=== PATIENT | male | born 1980 | race African-American/Black ===

== ENCOUNTER 2021-11-15 13:23 | Emergency (ER) | payer MEDICAID ==
[~2021-11-15] VITALS: Ht 190.5 cm; Wt 106.0 kg
[2021-11-15] MEDS ORDERED: CEPH500T MT (13:49)
[2021-11-15 13:54] VITALS: BP 141/69
== END 2021-11-15 13:54 | disposition home or self-care (01) ==
LOC: ER 13:35
DX: H66.41 Suppurative otitis media, unspecified, right ear (principal)
CPT/HCPCS: 99283

== ENCOUNTER 2023-11-10 15:52 | Inpatient (IN) | payer MEDICAID, OTHER ==
[~2023-11-10] VITALS: Ht 190.5 cm; Wt 99.8 kg
[~2023-11-10 15:52] MED LIST: CEPH500T MT
[2023-11-10] MEDS: KETOROLAC 15MG/ML VIAL IV ONE (16:15)
[2023-11-10] MEDS: ACETAMINOPHEN 325MG TABLET PO STA (16:49)
[2023-11-10] MEDS: SODIUM CHLORIDE 0.9% 1000ML BAG (SEPSIS BOLUS) IV ONE (16:50)
[2023-11-10 17:02] LABS: BASOPHILS % 0.6 % (0.0-2.0); HEMATOCRIT. 48.2 % (42.0-52.0); HEMOGLOBIN. 16.2 g/dL (14.0-18.0); LYMPHOCYTES % 10.3 % (20.0-50.0); MEAN CORPUSCULAR HEMOGLOBIN 30.2 pg (28.0-32.0); MEAN CORPUSCULAR HGB CONC 33.7 g/dL (31.0-37.0); MEAN CORPUSCULAR VOLUME 89.9 fL (80.0-94.0); MEAN PLATELET VOLUME 8.8 fl (7.4-10.4); MONOCYTES % 10.4 % (2.0-8.0); NEUTROPHILS % 78.7 % (40.0-76.0); PLATELET 195 x1000/uL (130-400); RED BLOOD CELL COUNT 5.36 mill/uL (4.7-6.1); RED CELL DISTRIBUTION WIDTH 12.6 % (11.6-14.6); WHITE BLOOD COUNT 11.2 x1000/uL (4.5-11.0)
[2023-11-10 17:08] LABS: INR 1.1; PROTHROMBIN TIME 12.5 sec (9.6-11.0)
[2023-11-10 17:16] LABS: ALANINE AMINOTRANSFERASE 31 IU/L (10-49); ALBUMIN 4.7 g/dL (3.2-4.8); ASPARTATE AMINOTRANSFERASE 41 IU/L (<34); BILIRUBIN TOTAL 0.9 mg/dL (0.1-1.0); CALCIUM 8.8 mg/dL (8.7-10.4); CARBON DIOXIDE 26 mEq/L (21-32); CHLORIDE 95 mEq/L (98-107); CREATININE 1.1 mg/dL (0.6-1.3); GLUCOSE 129 mg/dL (70-105); LACTIC ACID 2.4 mmol/L (0.4-2.0); POTASSIUM 3.6 mEq/L (3.5-5.1); PROTEIN TOTAL 7.2 g/dL (6.0-8.3); SODIUM 131 mEq/L (136-145); TROPONIN I HIGH SENSITIVITY 6 ng/L (3.0-53); UREA NITROGEN BLOOD 15 mg/dL (9-23)
[2023-11-10] MEDS: CEFTRIAXONE 1GM/50ML 50 ML IV ONE (17:29)
[2023-11-10] MEDS: ONDANSETRON HCL 4MG/2ML INJ IV ONE (17:29)
[2023-11-10] MEDS: AZITHROMYCIN 500MG/250ML 250 ML IV ONE (17:29)
[2023-11-10 22:54] LABS: CLARITY URINE CLEAR (CLEAR); COLOR URINE YELLOW (YELLOW); GLUCOSE URINE NEGATIVE (NEGATIVE); KETONES URINE TRACE (NEGATIVE); LEUKOCYTE ESTERASE URINE NEGATIVE (NEGATIVE); NITRITE URINE NEGATIVE (NEGATIVE); OCCULT BLOOD URINE NEGATIVE (NEGATIVE); PROTEIN URINE TRACE (NEGATIVE); SPECIFIC GRAVITY URINE 1.008 (1.005-1.030); UROBILINOGEN URINE 0.2 E.U./dL (0.2-1.0)
[2023-11-10 22:55] VITALS: BP 150/94; PULSE 82; RESP 20; TEMP 97.5
[2023-11-10 23:22] LABS: BACTERIA URINE NONE SEEN; RBC URINE NONE SEEN /hpf (0-2); SQUAMOUS EPITHELIAL CELL URINE NONE SEEN /lpf (RARE/1+); WBC URINE 0-2 /hpf (0-2); YEAST URINE NONE SEEN
[2023-11-11] VITALS: BP 127/80; PULSE 77; RESP 20; TEMP 97.5
[2023-11-11] MEDS ORDERED: HYDROCODONE/ACETAMINOPHEN 5/325MG TABLET PO PRN ×2 (00:15→09:45)
[2023-11-11] MEDS ORDERED: NALOXONE HCL 0.4MG/ML VIAL IV PRN (00:30)
[2023-11-11] MEDS: DEXT 5%/0.45% NACL 1000ML 1,000 ML IV SCH (01:47)
[2023-11-11 04:00] VITALS: BP 127/80; PULSE 77; RESP 20; TEMP 97.5
[2023-11-11 06:31] LABS: HEMATOCRIT 42.4 % (42.0-52.0); HEMOGLOBIN 14.8 g/dL (14.0-18.0); MEAN CORPUSCULAR HGB CONC 34.8 g/dL (31.0-37.0); MEAN CORPUSCULAR VOLUME 88.9 fL (80.0-94.0); PLATELET 169 x1000/uL (130-400); RED BLOOD CELL COUNT 4.77 mill/uL (4.7-6.1); RED CELL DISTRIBUTION WIDTH 12.5 % (11.6-14.6)
[2023-11-11 06:56] LABS: CALCIUM 8.4 mg/dL (8.7-10.4); CARBON DIOXIDE 27 mEq/L (21-32); CHLORIDE 102 mEq/L (98-107); GLUCOSE 153 mg/dL (70-105); POTASSIUM 3.7 mEq/L (3.5-5.1); SODIUM 132 mEq/L (136-145); UREA NITROGEN BLOOD 15 mg/dL (9-23)
[2023-11-11 08:00] VITALS: BP 135/79; PULSE 76; RESP 18; TEMP 98.5
[2023-11-11] MEDS: ENOXAPARIN 40MG/0.4ML SYR SUBCUT SCH (08:42)
[2023-11-11] MEDS: CEFTRIAXONE 1GM/50ML 50 ML IV SCH (08:42)
[2023-11-11] MEDS ORDERED: DOCUSATE SODIUM 100MG CAPSULE PO PRN (09:30)
[2023-11-11] MEDS ORDERED: IPRATROPIUM/ALBUTEROL 0.5-3(2.5)MG/3ML NEB HHN PRN (09:30)
[2023-11-11] MEDS ORDERED: CLONIDINE 0.1MG TABLET PO PRN (09:30)
[2023-11-11] MEDS: PANTOPRAZOLE 40MG DR TABLET PO SCH (10:02)
[2023-11-11] MEDS: AZITHROMYCIN 500MG/250ML 250 ML IV SCH (10:02)
[2023-11-11] MEDS: ACETAMINOPHEN 325MG TABLET PO PRN (10:12)
[2023-11-11 12:00] VITALS: BP 122/80; PULSE 81; RESP 18; TEMP 99.5
[2023-11-11 16:00] VITALS: BP 130/80; PULSE 81; RESP 18; TEMP 98.1
[2023-11-11 18:57] LABS: CREATINE KINASE MB FRACTION 1.2 ng/mL (0.5-3.6)
[2023-11-11] MEDS ORDERED: GADOTERATE MEGLUMINE 5 MMOL/10 ML VIAL IV ONE (19:49)
[2023-11-11 20:46] VITALS: BP 131/80; PULSE 67; RESP 18; TEMP 98.4
[2023-11-12 00:41] LABS: CREATINE KINASE MB FRACTION 0.8 ng/mL (0.5-3.6)
[2023-11-12 00:51] VITALS: BP 134/89; PULSE 74; RESP 20; TEMP 97.5
[2023-11-12 04:00] VITALS: BP 112/68; PULSE 68; RESP 16; TEMP 99.5
[2023-11-12 08:00] VITALS: BP 110/72; PULSE 66; RESP 22; TEMP 98.9
[2023-11-12] MEDS ORDERED: IOHEXOL-350 100 ML BOTTLE ONE (11:53)
[2023-11-12 16:00] VITALS: BP 125/76; PULSE 67; RESP 22; TEMP 97.5
[2023-11-12 20:08] VITALS: BP 111/68; PULSE 72; RESP 18; TEMP 98.3
[2023-11-13] VITALS (7 sets, daily range): BP systolic 113–129; BP diastolic 70–83; PULSE 61–75; RESP 18–20; TEMP 97.2–99.7
[2023-11-13] MEDS ORDERED: IBUP-2030 MT (14:00)
[2023-11-13] MEDS ORDERED: AZIT500T8 PO (14:00)
[2023-11-13 14:57] LABS: BG BASE EXCESS 3.5 mmol/L (-2.0-2.0); BG CARBOXYHEMOGLOBIN 0.6 % (0.5-1.5); BG DEOXYHEMOGLOBIN 4.7 % (0.0-5.0); BG FRACTION INSPIRED OXYGEN 21; BG HCO3 ACT 26.8 mmol/L (22.0-26.0); BG METHEMOGLOBIN 0.1 % (0.0-1.5); BG OXYGEN SATURATION 95.3 % (92.0-98.5); BG OXYHEMOGLOBIN 94.6 % (94.0-97.0); BG PCO2 36.7 mmHg (35.0-45.0); BG PH 7.482 (7.350-7.450); BG PO2 74.4 mmHg (75.0-100.0); BG SAMPLE SITE RIGHT RADIAL; BG TOTAL HEMOGLOBIN 14.9 g/dL (12.0-18.0); BG VENT MODE ROOM AIR
[2023-11-14 04:00] VITALS: BP 115/68; PULSE 61; RESP 19; TEMP 100.9
[2023-11-14] MEDS: AZITHROMYCIN 500 MG TABLET PO SCH (08:14)
[2023-11-14] MEDS: FAMOTIDINE 20MG TABLET PO SCH (08:14)
[2023-11-14] MEDS: CEFTRIAXONE 1,000 MG in DEXTROSE 5% WATER 50 ML IV SCH (08:14)
[2023-11-14 09:43] VITALS: BP 104/59; PULSE 67; RESP 22; TEMP 97
[2023-11-14 09:58] VITALS: BP 104/59; PULSE 67; TEMP 97; O2SAT 98
[2023-11-14] MEDS ORDERED: IOHEXOL-350 100 ML BOTTLE ONE (12:19)
== END 2023-11-14 10:55 | disposition short-term general hospital (02) | DRG 139 ==
LOC: ER 15:52 → EDBEDREQ 20:13 → 7WST 22:54
PROVIDERS: ADMIT Internal Medicine; ATTEND Internal Medicine
DX: J18.9 Pneumonia, unspecified organism (principal); J96.90 Respiratory failure, unspecified, unspecified whether with hypoxia or hypercapnia; E87.1 Hypo-osmolality and hyponatremia; E87.20 Acidosis, unspecified; G93.0 Cerebral cysts; I10 Essential (primary) hypertension; D72.829 Elevated white blood cell count, unspecified; Z20.822 Contact with and (suspected) exposure to COVID-19
CPT/HCPCS: 36415; 36600; 70553; 71045; 71275; 80048; 80053; 81003; 82375; 82550; 82553; 82805; 82962; 83036; 83605; 83880; 84145; 84484; 85025; 85027; 85379; 87426; 87449; 87804; 93005; 99285; A9577; J0456; J0696; J1650; J1885; J2405; J7030; J7060; Q9967

== ENCOUNTER 2025-08-02 12:30 | Emergency (ER) | payer MEDICAID ==
[~2025-08-02] VITALS: Ht 191.8 cm; Wt 102.6 kg
[~2025-08-02 12:30] MED LIST changes: +AZIT500T8 PO; -CEPH500T MT; +IBUP-2030 MT
[2025-08-02 12:44] VITALS: O2SAT 98
[2025-08-02] MEDS: FLUORESCEIN SODIUM 1MG/STRIP LEFTEYE ONE (15:06)
[2025-08-02] MEDS: TETRACAINE 0.5% OPHTH DROPS 4ML BOTHEYE ONE (15:07)
[2025-08-02 15:45] LABS: BASOPHILS % 1.9 % (0.0-2.0); EOSINOPHILS % 1.2 % (0.0-5.0); HEMATOCRIT. 45.2 % (42.0-52.0); HEMOGLOBIN. 15.1 g/dL (14.0-18.0); LYMPHOCYTES % 35.9 % (20.0-50.0); MEAN PLATELET VOLUME 8.3 fl (7.4-10.4); MONOCYTES % 9.2 % (2.0-8.0); NEUTROPHILS % 51.8 % (40.0-76.0); PLATELET 260 x1000/uL (130-400); RED BLOOD CELL COUNT 4.93 mill/uL (4.7-6.1); RED CELL DISTRIBUTION WIDTH 12.6 % (11.6-14.6)
[2025-08-02 16:00] LABS: CREATININE 1.0 mg/dL (0.6-1.3); UREA NITROGEN BLOOD 8 mg/dL (9-23)
[2025-08-02 16:01] LABS: TROPONIN I HIGH SENSITIVITY < 4 ng/L (3.0-53)
[2025-08-02 16:02] LABS: ASPARTATE AMINOTRANSFERASE 25 IU/L (<34); BILIRUBIN DIRECT 0.2 mg/dL (<=3.0); BILIRUBIN TOTAL 0.7 mg/dL (0.1-1.0); PROTEIN TOTAL 6.7 g/dL (6.0-8.3)
[2025-08-02] MEDS ORDERED: OCUFLX LEFTEYE (18:08)
[2025-08-02] MEDS ORDERED: IBUP-2028 MT (18:09)
[2025-08-02 19:08] LABS: TROPONIN I HIGH SENSITIVITY < 4 ng/L (3.0-53)
[2025-08-02 19:18] VITALS: BP 120/80; PULSE 88; RESP 16; TEMP 36.8; O2SAT 98
== END 2025-08-02 19:20 | disposition home or self-care (01) ==
LOC: ER 12:46 → CANBEDREQ 19:12 → ER 19:20
DX: S05.02XA Injury of conjunctiva and corneal abrasion without foreign body, left eye, initial encounter (principal); R06.02 Shortness of breath; Z79.899 Other long term (current) drug therapy; X58.XXXA Exposure to other specified factors, initial encounter; Y93.89 Activity, other specified; Y92.89 Other specified places as the place of occurrence of the external cause; Y99.8 Other external cause status
CPT/HCPCS: 36415; 71045; 80048; 80076; 83880; 84484; 85025; 93005; 99285